=== PATIENT | female | born 1955 ===

== ENCOUNTER 2025-03-16 06:00 | Day surgery (SDC) | payer OTHER ==
[2025-03-11 12:11] VITALS: BP 139/76
[~2025-03-16] VITALS: Ht 160 cm; Wt 45.4 kg
[2025-03-16] MEDS ORDERED: SUGAMMADEX SODIUM 200 MG/2 ML VIAL IV ONE (08:30)
[2025-03-16] MEDS ORDERED: DEXAMETHASONE SODIUM PHOSPHATE 4 MG/ML VIAL IV ONE (08:30)
[2025-03-17] MEDS ORDERED: CEFAZOLIN SODIUM 1,000 MG VIAL IV ONE (14:45)
== END 2025-03-16 13:20 | disposition home or self-care (01) ==
LOC: CIR.AMB 06:00 → SURH 06:00 → O/R 06:00 → SURH 07:00 → EDSTATUS 10:45 → O/R 13:20 → CIR.AMB 13:20
PROVIDERS: ATTEND Surgery
DX: C73 Malignant neoplasm of thyroid gland (principal)